=== PATIENT | female | born 2000 | race Caucasian/White ===

== ENCOUNTER 2022-09-02 13:05 | Emergency (ER) | payer OTHER ==
[~2022-09-02] VITALS: Ht 157.5 cm; Wt 77.3 kg
[2022-09-02 13:18] VITALS: TEMP 97.9
[2022-09-02 14:36] VITALS: BP 110/58; PULSE 56
== END 2022-09-02 14:36 | disposition home or self-care (01) ==
LOC: COL.ER 13:05
DX: G43.909 Migraine, unspecified, not intractable, without status migrainosus (principal)
CPT/HCPCS: J1885; J2765; J7030